=== PATIENT | male | born 1970 | race Caucasian/White ===

== ENCOUNTER 2018-08-12 13:44 | Emergency (ER) | payer MEDICARE ==
[2018-08-12 14:20] LABS: #Basophils 0.1 thou/uL (0.0-0.2); #Eosinphils 0.1 thou/uL (0.0-0.7); #Lymphocytes 1.8 thou/uL (1.20-3.40); #Monocytes 0.5 thou/uL (0.11-0.59); #Neutrophils 5.8 thou/uL (1.40-6.50); %Basophils 0.8 % (0.0-1.0); %Eosinophils 1.5 % (0.0-10.0); %Lymphocytes 21.9 % (21.0-51.0); %Monocytes 5.4 % (0.0-10.0); %Neutrophils 70.4 % (42.0-75.0); Hemoglobin 13.8 g/dL (14.0-18.0); Mean Corpuscular HGB CONC 32.9 g/dL (32.0-36.0); Mean Corpuscular Hemoglobin 32.4 pg (27.0-31.0); Mean Corpuscular Volume 98.6 fL (78.0-98.0); Mean Platelet Volume 9.9 fL (7.4-10.4); Platelet Count 208 thou/uL (130-400); RBC Distribution Width 11.6 % (11.5-14.5); Red Blood Cell (RBC) Count 4.25 mill/uL (4.70-6.10); White Blood Cell (WBC) Count 8.3 thou/uL (4.8-10.8)
[2018-08-12] MEDS ORDERED: Thiamine HCl 200 MG/2 ML VIAL ONE (14:27)
[2018-08-12 14:34] LABS: ALT (SGPT) 46 U/L (8-55); AST (SGOT) 48 U/L (5-34); Albumin 3.9 g/dL (3.5-5.0); Alkaline Phosphatase 90 U/L (40-150); Anion Gap 15 mmol/L (10-20); BUN (Urea Nitrogen) 12 mg/dL (8.9-20.6); Bilirubin, Total 0.5 mg/dL (0.2-1.2); Calc. Creatinine Clearance 0 mL/min (70-130); Calcium 9.6 mg/dL (7.8-10.44); Carbon Dioxide 24 mmol/L (22-29); Chloride 99 mmol/L (98-107); Estimated GFR-MDRD 54; Globulin 3.7 g/dL (2.4-3.5); Glucose 282 mg/dL (70-105); Lipase 52 U/L (8-78); Protein, Total 7.6 g/dL (6.0-8.3); Sodium 134 mmol/L (136-145)
[2018-08-12] MEDS ORDERED: Lorazepam 2 MG/ML VIAL ONE (14:35)
[2018-08-12 14:52] LABS: CKMB 1.2 ng/mL (0-6.6)
[2018-08-12] MEDS ORDERED: Furosemide 40 MG/4 ML VIAL ONE (15:29)
--- NOTE | 2018-08-12 18:21 | RAD ---
PORTABLE CHEST: 08/12/18 An AP portable film at 1412 is presented with no prior films available for comparison. The heart is mildly enlarged but there is no congestive change or pleural effusion. The lungs are luis ar. The mediastinum was unremarkable. IMPRESSION: Mild cardiomegaly. POS: HOME
== END 2018-08-12 16:19 | disposition short-term general hospital (02) ==
LOC: BURERS 13:44
DX: I50.9 Heart failure, unspecified (principal); F10.10 Alcohol abuse, uncomplicated; B19.20 Unspecified viral hepatitis C without hepatic coma; I95.9 Hypotension, unspecified; R18.8 Other ascites; E11.9 Type 2 diabetes mellitus without complications; F31.9 Bipolar disorder, unspecified; F20.9 Schizophrenia, unspecified; F17.210 Nicotine dependence, cigarettes, uncomplicated; Z79.4 Long term (current) use of insulin; Z79.899 Other long term (current) drug therapy
CPT/HCPCS: 36415; 71045; 80053; 82553; 83690; 83880; 84484; 85025; 93005; 96361; 96374; 96375; J1940; J2060; J3411

== ENCOUNTER 2019-05-20 15:54 | Emergency (ER) | payer MEDICARE ==
[2019-05-20 16:59] LABS: #Basophils 0.1 thou/uL (0.0-0.2); #Eosinphils 0.1 thou/uL (0.0-0.7); #Lymphocytes 1.9 thou/uL (1.20-3.40); #Monocytes 0.6 thou/uL (0.11-0.59); #Neutrophils 5.5 thou/uL (1.40-6.50); %Basophils 0.9 % (0.0-1.0); %Eosinophils 1.6 % (0.0-10.0); %Monocytes 7.3 % (0.0-10.0); %Neutrophils 67.1 % (42.0-75.0); Hemoglobin 12.7 g/dL (14.0-18.0); Mean Corpuscular HGB CONC 33.8 g/dL (32.0-36.0); Mean Corpuscular Hemoglobin 32.3 pg (27.0-31.0); Mean Corpuscular Volume 95.6 fL (78.0-98.0); Mean Platelet Volume 9.7 fL (7.4-10.4); Platelet Count 254 thou/uL (130-400); RBC Distribution Width 11.3 % (11.5-14.5); Red Blood Cell (RBC) Count 3.93 mill/uL (4.70-6.10); White Blood Cell (WBC) Count 8.2 thou/uL (4.8-10.8)
[2019-05-20 17:12] LABS: ALT (SGPT) 19 U/L (8-55); AST (SGOT) 19 U/L (5-34); Alkaline Phosphatase 90 U/L (40-110); Anion Gap 20 mmol/L (10-20); BUN (Urea Nitrogen) 16 mg/dL (8.4-25.7); Bilirubin, Total 0.4 mg/dL (0.2-1.2); Calc. Creatinine Clearance 0 mL/min (70-130); Carbon Dioxide 26 mmol/L (22-29); Chloride 90 mmol/L (98-107); Estimated GFR-MDRD 30; Globulin 3.7 g/dL (2.4-3.5); Glucose 262 mg/dL (70-105); Lipase 21 U/L (8-78); Protein, Total 7.7 g/dL (6.0-8.3); Sodium 132 mmol/L (136-145)
[2019-05-20 17:31] LABS: CKMB 1.9 ng/mL (0-6.6)
[2019-05-20] MEDS ORDERED: Ibuprofen 200 MG TAB ONE (19:33)
--- NOTE | 2019-05-20 22:36 | RAD ---
PORTABLE CHEST: 05/20/19 An AP portable film at 1628 is compared with the prior study of 08/12/18. The heart is mildly enlarged but approximately the same as before. No vascular congestion, edema, or pleural effusion was seen. There is no focal pulmonary infiltrate. IMPRESSION: Mild cardiomegaly with little change since the prior exam. POS: HOME
== END 2019-05-20 19:40 | disposition short-term general hospital (02) ==
LOC: BURERS 15:54
DX: N17.9 Acute kidney failure, unspecified (principal); E86.0 Dehydration; I95.9 Hypotension, unspecified; I11.0 Hypertensive heart disease with heart failure; I50.9 Heart failure, unspecified; E11.9 Type 2 diabetes mellitus without complications; F31.9 Bipolar disorder, unspecified; F20.9 Schizophrenia, unspecified; F17.210 Nicotine dependence, cigarettes, uncomplicated; F17.220 Nicotine dependence, chewing tobacco, uncomplicated; Z79.899 Other long term (current) drug therapy; Z79.4 Long term (current) use of insulin; Z79.51 Long term (current) use of inhaled steroids
CPT/HCPCS: 71045; 80053; 82553; 83605; 83690; 83880; 84484; 85025; 93005; 96360

== ENCOUNTER 2019-08-02 09:55 | Emergency (ER) | payer MEDICARE, OTHER ==
[~2019-08-02 09:55] MED LIST: Iopamidol 370 76% 100 ML VIAL ONE
[2019-08-02 10:57] LABS: #Basophils 0.1 thou/uL (0.0-0.2); #Eosinphils 0.1 thou/uL (0.0-0.7); #Lymphocytes 1.7 thou/uL (1.20-3.40); #Monocytes 0.5 thou/uL (0.11-0.59); #Neutrophils 6.4 thou/uL (1.40-6.50); %Basophils 0.8 % (0.0-1.0); %Eosinophils 1.1 % (0.0-10.0); %Lymphocytes 19.7 % (21.0-51.0); %Neutrophils 72.4 % (42.0-75.0); Hemoglobin 14.2 g/dL (14.0-18.0); Mean Corpuscular HGB CONC 32.4 g/dL (32.0-36.0); Mean Corpuscular Volume 98.9 fL (78.0-98.0); Mean Platelet Volume 7.7 fL (7.4-10.4); Platelet Count 265 thou/uL (130-400); RBC Distribution Width 12.4 % (11.5-14.5); Red Blood Cell (RBC) Count 4.43 mill/uL (4.70-6.10); White Blood Cell (WBC) Count 8.8 thou/uL (4.8-10.8)
[2019-08-02] MEDS ORDERED: Lorazepam 2 MG/ML VIAL ONE (10:58)
[2019-08-02] MEDS ORDERED: Fentanyl 100 MCG/2 ML VIAL ONE (10:58)
[2019-08-02 11:09] LABS: ALT (SGPT) 28 U/L (8-55); AST (SGOT) 39 U/L (5-34); Alkaline Phosphatase 112 U/L (40-110); Anion Gap 19 mmol/L (10-20); BUN (Urea Nitrogen) 6 mg/dL (8.4-25.7); Bilirubin, Total 0.6 mg/dL (0.2-1.2); Calc. Creatinine Clearance 0 mL/min (70-130); Calcium 8.8 mg/dL (7.8-10.44); Carbon Dioxide 22 mmol/L (22-29); Chloride 94 mmol/L (98-107); Estimated GFR-MDRD 46; Glucose 435 mg/dL (70-105); Lipase 26 U/L (8-78); Magnesium 2.1 mg/dL (1.6-2.6); Potassium 4.1 mmol/L (3.5-5.1); Sodium 131 mmol/L (136-145)
[2019-08-02 11:23] LABS: Albumin 3.9 g/dL (3.5-5.0); Globulin 4.1 g/dL (2.4-3.5)
[2019-08-02] MEDS ORDERED: Thiamine HCl 200 MG/2 ML VIAL ONE (11:25)
[2019-08-02] MEDS ORDERED: Multivit, Adult Inj 10 ML VIAL ONE (11:26)
[2019-08-02] MEDS ORDERED: Piperacillin/Tazobactam 4.5 GM VIAL ONE (12:12)
[2019-08-02] MEDS ORDERED: Sodium Chloride 0.9% 100 ML ONE (12:13)
[2019-08-02 13:10] LABS: Lactic Acid 1.5 mmol/L (0.5-2.2)
[2019-08-02 13:20] LABS: Troponin I 0.134 ng/mL (< 0.028)
--- NOTE | 2019-08-02 15:32 | RAD ---
PORTABLE CHEST: Date: 08-02-2019 Comparison: 05-20-2019 FINDINGS: This portable film at 1110 shows mild cardiomegaly but no current congestive change. The lungs are cl ear and the vessels are normal in appearance. There are no effusions. No focal infiltrates are seen. An AICD has been added since the prior study. IMPRESSION: Mild cardiomegaly but no findings of CHF. POS: HOME
--- NOTE | 2019-08-02 15:44 | CT ---
CT ABDOMEN AND PELVIS WITH CONTRAST: DATE: 08/02/2019. FINDINGS: Spiral CT of the abdomen and pelvis was performed for evaluation of nausea and vomiting and diarrhea. The lung bases are clear. The liver, spleen, pancreas, gallbladder, adrenal glands, kidneys, and abd ominal aorta showed no acute findings. There is a tiny gallstone visible in the gallbladder, but the re is no thickening of the wall or pericholecystic inflammatory change. The gallbladder is not enlar ged. There is mild diffuse thickening of the colonic wall throughout its entire extent. The possibility o f colitis, infectious or inflammatory, is raised. There is no distention or thickening of the stomach. The small bowel is not distended. No free air or free fluid was seen. CT of the pelvis shows no pelvic masses, fluid collections, or inflammatory changes. IMPRESSION: 1. Mild diffuse colonic inflammatory change. colitis of infectious or inflammatory causes should be considered. 2. Tiny gallstones. Preliminary report called to Dr. Haq at 12:13 on 08/02/2019. CODE CR POS: HOME
[2019-08-03 11:08] LABS: SARS-CoV-2 MS2 Positive; SARS-CoV-2 N Gene Negative; SARS-CoV-2 S Gene Negative; SARS-CoV-2 orf1ab Negative
== END 2019-08-02 13:48 | disposition short-term general hospital (02) ==
LOC: BURERS 09:55
DX: A41.9 Sepsis, unspecified organism (principal); F10.239 Alcohol dependence with withdrawal, unspecified; K52.9 Noninfective gastroenteritis and colitis, unspecified; Z20.828 Contact with and (suspected) exposure to other viral communicable diseases; I11.0 Hypertensive heart disease with heart failure; I50.9 Heart failure, unspecified; E11.9 Type 2 diabetes mellitus without complications; F17.220 Nicotine dependence, chewing tobacco, uncomplicated; Z79.899 Other long term (current) drug therapy
CPT/HCPCS: 36415; 71045; 74177; 80053; 82553; 83605; 83690; 83735; 84443; 84484; 85025; 87040; 87086; 87635; 87804; 93005; 94760; 96361; 96365; 96366; 96368; 96372; 96375; J2060; J2543; J3010; J3370; J3411; J3490; Q9967; U0003

== ENCOUNTER 2019-10-10 10:08 | Emergency (ER) | payer MEDICARE, OTHER ==
[2019-10-10] MEDS ORDERED: Famotidine In NaCl 20 mg/50 ml Premix Bag ONE (10:51)
[2019-10-10] MEDS ORDERED: Ondansetron PF 4 MG/2 ML Vial ONE ×3 (10:51→15:55)
[2019-10-10 11:05] LABS: #Lymphocytes 1.2 thou/uL (1.20-3.40); #Monocytes 0.3 thou/uL (0.11-0.59); #Neutrophils 5.5 thou/uL (1.40-6.50); %Basophils 0.6 % (0.0-1.0); %Eosinophils 0.4 % (0.0-10.0); %Monocytes 4.8 % (0.0-10.0); %Neutrophils 77.3 % (42.0-75.0); Hemoglobin 13.3 g/dL (14.0-18.0); Mean Corpuscular HGB CONC 31.5 g/dL (32.0-36.0); Mean Corpuscular Hemoglobin 31.1 pg (27.0-31.0); Mean Corpuscular Volume 98.5 fL (78.0-98.0); Mean Platelet Volume 7.8 fL (7.4-10.4); Platelet Count 259 thou/uL (130-400); RBC Distribution Width 11.8 % (11.5-14.5); Red Blood Cell (RBC) Count 4.28 mill/uL (4.70-6.10); White Blood Cell (WBC) Count 7.1 thou/uL (4.8-10.8)
[2019-10-10 11:07] LABS: Bilirubin Negative (Negative); Blood, Urine Negative (Negative); Clarity Clear (Clear); Glucose, Urine (Dipstick) 500 mg/dL (Negative); Ketone, Urine Trace mg/dL (Negative); Leukocyte Negative (Negative); Nitrite Negative (Negative); Protein, Urine (Dipstick) Negative (Neg-Trace); Specific Gravity, Urine 1.015 (1.005-1.030); Urobilinogen 0.2 mg/dL (Less than 2); pH, Urine 7.5 (5.0-9.0)
[2019-10-10 11:17] LABS: ALT (SGPT) 28 U/L (8-55); AST (SGOT) 59 U/L (5-34); Albumin 4.1 g/dL (3.5-5.0); Alcohol Less than 10 mg/dL (Less than 10); Alkaline Phosphatase 104 U/L (40-110); Anion Gap 19 mmol/L (10-20); BUN (Urea Nitrogen) 9 mg/dL (8.4-25.7); Bilirubin, Total 0.9 mg/dL (0.2-1.2); Calc. Creatinine Clearance 0 mL/min (70-130); Calcium 9.1 mg/dL (7.8-10.44); Carbon Dioxide 23 mmol/L (22-29); Chloride 93 mmol/L (98-107); Estimated GFR-MDRD 60; Globulin 3.8 g/dL (2.4-3.5); Glucose 549 mg/dL (70-105); Lipase 17 U/L (8-78); Potassium 4.7 mmol/L (3.5-5.1); Protein, Total 7.9 g/dL (6.0-8.3); Sodium 130 mmol/L (136-145)
[2019-10-10] MEDS ORDERED: Thiamine HCl 200 MG/2 ML VIAL ONE (11:18)
[2019-10-10] MEDS ORDERED: Lorazepam 2 MG/ML VIAL ONE ×2 (11:18→15:57)
[2019-10-10 11:34] LABS: CKMB 3.3 ng/mL (0-6.6)
[2019-10-10] MEDS ORDERED: Insulin Regular 300 UNITS/3 ML VIAL ONE (12:02)
[2019-10-10 13:02] LABS: Base Excess-Venous -1.3 mmol/L (-2.0 to 3.0); Bicarbonate (HCO3v) 24.9 mmol/L (22.0-28.0); CO2 Tension (PvCO2) 46.6 mmHg (40.0-50.0); Calcium, Ionized 1.08 mmol/L (See Comments:); Chloride 99 mmol/L (98-107); Hemoglobin - Calc 13.4 g/dL (14.0-18.0); Potassium 3.9 mmol/L (3.5-5.1); Sodium 135 mmol/L (138-145); T. Carbon Dioxide 26.3 mmol/L (22.0-28.0); vO2 Saturation-calc 97.9 % (60.0-85.0)
[2019-10-10 13:40] LABS: Anion Gap 15 mmol/L (10-20); BUN (Urea Nitrogen) 8 mg/dL (8.4-25.7); Calc. Creatinine Clearance 0 mL/min (70-130); Calcium 8.6 mg/dL (7.8-10.44); Carbon Dioxide 26 mmol/L (22-29); Chloride 99 mmol/L (98-107); Estimated GFR-MDRD 78; Glucose 333 mg/dL (70-105); Potassium 4.7 mmol/L (3.5-5.1); Sodium 135 mmol/L (136-145)
--- NOTE | 2019-10-10 14:29 | RAD ---
PORTABLE CHEST: Date: 10-10-2019 An AP portable film at 1411 is compared with a 08-02-2019 study. FINDINGS: Borderline cardiomegaly is about the same. There is no congestive change, pleural effusion or pulmona ry edema. The lungs are clear. An AICD is in place as usual. Scoliosis is noted as before. IMPRESSION: No acute thoracic findings. POS: HOME
== END 2019-10-10 16:35 | disposition short-term general hospital (02) ==
LOC: BURERS 10:08
DX: K51.90 Ulcerative colitis, unspecified, without complications (principal); F10.20 Alcohol dependence, uncomplicated; E11.10 Type 2 diabetes mellitus with ketoacidosis without coma; E87.1 Hypo-osmolality and hyponatremia; I11.0 Hypertensive heart disease with heart failure; I50.9 Heart failure, unspecified; F31.9 Bipolar disorder, unspecified; F20.9 Schizophrenia, unspecified; F17.220 Nicotine dependence, chewing tobacco, uncomplicated; Z79.899 Other long term (current) drug therapy; Z79.4 Long term (current) use of insulin; Y90.0 Blood alcohol level of less than 20 mg/100 ml
CPT/HCPCS: 36415; 36416; 71045; 80053; 80307; 81003; 82330; 82553; 82803; 83690; 83735; 83880; 84484; 85025; 93005; 96365; 96375; 96376; J1815; J2060; J2405; J3411

== ENCOUNTER 2019-12-09 19:35 | Emergency (ER) | payer MEDICARE ==
[~2019-12-09 19:35] MED LIST changes: +Dextrose 5 %-0.45 % NaCl 1000 ml Bag ONE; -Iopamidol 370 76% 100 ML VIAL ONE
[2019-12-09 20:00] LABS: #Basophils 0.1 thou/uL (0.0-0.2); #Lymphocytes 0.7 thou/uL (1.20-3.40); #Monocytes 0.4 thou/uL (0.11-0.59); #Neutrophils 6.3 thou/uL (1.40-6.50); %Basophils 0.8 % (0.0-1.0); %Lymphocytes 9.5 % (21.0-51.0); %Monocytes 4.8 % (0.0-10.0); %Neutrophils 84.9 % (42.0-75.0); Hemoglobin 11.6 g/dL (14.0-18.0); Mean Corpuscular HGB CONC 32.5 g/dL (32.0-36.0); Mean Corpuscular Hemoglobin 31.5 pg (27.0-31.0); Mean Corpuscular Volume 97.1 fL (78.0-98.0); Mean Platelet Volume 8.1 fL (7.4-10.4); Platelet Count 310 thou/uL (130-400); RBC Distribution Width 13.3 % (11.5-14.5); Red Blood Cell (RBC) Count 3.68 mill/uL (4.70-6.10); White Blood Cell (WBC) Count 7.4 thou/uL (4.8-10.8)
[2019-12-09] MEDS ORDERED: Lorazepam 2 MG/ML VIAL ONE ×2 (20:04→20:10)
[2019-12-09] MEDS ORDERED: Thiamine HCl 200 MG/2 ML VIAL ONE (20:04)
[2019-12-09] MEDS ORDERED: Aspirin Chewable 81 MG TAB ONE (20:04)
[2019-12-09] MEDS ORDERED: Ondansetron PF 4 MG/2 ML Vial ONE (20:04)
[2019-12-09 20:13] LABS: ALT (SGPT) 33 U/L (8-55); AST (SGOT) 56 U/L (5-34); Albumin 3.6 g/dL (3.5-5.0); Alkaline Phosphatase 86 U/L (40-110); Anion Gap 26 mmol/L (10-20); BUN (Urea Nitrogen) Less than 4 mg/dL (8.4-25.7); Bilirubin, Total 0.5 mg/dL (0.2-1.2); Calc. Creatinine Clearance 0 mL/min (70-130); Calcium 8.3 mg/dL (7.8-10.44); Carbon Dioxide 22 mmol/L (22-29); Chloride 90 mmol/L (98-107); Estimated GFR-MDRD 71; Globulin 3.9 g/dL (2.4-3.5); Lipase 31 U/L (8-78); Magnesium 1.8 mg/dL (1.6-2.6); Potassium 4.6 mmol/L (3.5-5.1); Protein, Total 7.5 g/dL (6.0-8.3); Sodium 133 mmol/L (136-145)
[2019-12-09 20:18] LABS: Glucose 573 mg/dL (70-105)
[2019-12-09] MEDS ORDERED: INSULIN REGULAR IN 0.9 % NACL 100 UNIT/100 ML BAG ONE (20:35)
[2019-12-09] MEDS ORDERED: Insulin Regular 300 UNITS/3 ML VIAL ONE (20:35)
[2019-12-09] MEDS ORDERED: Furosemide 100 MG/10 ML VIAL ONE (20:43)
[2019-12-09 20:50] LABS: Base Excess-Venous 3.5 mmol/L (-2.0 to 3.0); Bicarbonate (HCO3v) 26.3 mmol/L (22.0-28.0); CO2 Tension (PvCO2) 33.1 mmHg (40.0-50.0); Chloride 93 mmol/L (98-107); Hemoglobin - Calc 12.2 g/dL (14.0-18.0); Potassium 4.2 mmol/L (3.5-5.1); Sodium 133 mmol/L (138-145); T. Carbon Dioxide 27.3 mmol/L (22.0-28.0); vO2 Saturation-calc 97.6 % (60.0-85.0)
[2019-12-09 21:15] LABS: Bilirubin Negative (Negative); Blood, Urine Trace (Negative); Clarity Clear (Clear); Glucose, Urine (Dipstick) 500 mg/dL (Negative); Ketone, Urine 15 mg/dL (Negative); Leukocyte Negative (Negative); Nitrite Negative (Negative); Protein, Urine (Dipstick) Negative (Neg-Trace); Specific Gravity, Urine 1.015 (1.005-1.030); Urobilinogen 0.2 mg/dL (Less than 2); pH, Urine 8.5 (5.0-9.0)
[2019-12-09 21:18] LABS: CKMB 1.7 ng/mL (0-6.6)
[2019-12-09 21:25] LABS: Amphetamine Not Detected (NotDetected); Barbiturates Screen Not Detected (NotDetected); Benzodiazepine Screen Not Detected (NotDetected); Cocaine Metabolite Screen Not Detected (NotDetected); Medtox Control Line Valid? VALID (VALID); Methadone Not Detected (NotDetected); Methamphetamine Not Detected (NotDetected); Opiate Screen Not Detected (NotDetected); Oxycodone Screen Not Detected (NotDetected); Phencyclidine (PCP) Not Detected (NotDetected); RBC/HPF 0-3 HPF (0-3); THC/Cannabinoid Screen Not Detected (NotDetected); Tricyclic Screen Not Detected (NotDetected)
[2019-12-09 21:26] LABS: Bacteria/HPF Rare-Few HPF (None Seen); Squamous Epithelial 0-3 HPF (0-3); WBC/HPF 0-3 HPF (0-3)
[2019-12-09] MEDS ORDERED: Nitroglycerin 0.4 MG TAB 1 EACH ONE (21:27)
[2019-12-09] MEDS ORDERED: Famotidine 20 MG TAB ONE (22:06)
--- NOTE | 2019-12-10 07:25 | RAD ---
PORTABLE CHEST: Date: 12/09/2019 An AP portable film at 1959 hours is compared with the 11/21/2019 study. An AICD is noted as usual. Mild cardiomegaly is unchanged and there is no vascular congestion, edema, or pleural effusion. The lungs are clear. Scoliosis is present as usual. IMPRESSION: Mild cardiomegaly, but no acute findings. POS: HOME
== END 2019-12-09 22:25 | disposition short-term general hospital (02) ==
LOC: BURERS 19:35
DX: E11.10 Type 2 diabetes mellitus with ketoacidosis without coma (principal); I11.0 Hypertensive heart disease with heart failure; I50.9 Heart failure, unspecified; F10.239 Alcohol dependence with withdrawal, unspecified; Y90.2 Blood alcohol level of 40-59 mg/100 ml; E87.2 Acidosis; E87.3 Alkalosis; B19.20 Unspecified viral hepatitis C without hepatic coma; F31.9 Bipolar disorder, unspecified; F20.9 Schizophrenia, unspecified; F17.220 Nicotine dependence, chewing tobacco, uncomplicated; Z79.4 Long term (current) use of insulin; Z79.899 Other long term (current) drug therapy
CPT/HCPCS: 36415; 36416; 71045; 80053; 80306; 80307; 81003; 81015; 82330; 82553; 82803; 83690; 83735; 83880; 84484; 85025; 93005; 94760; 96365; 96366; 96375; 96376; J1815; J1940; J2060; J2405; J3411; J7042

== ENCOUNTER 2020-04-01 17:48 | Emergency (ER) | payer MEDICARE ==
[2020-04-01] MEDS ORDERED: Lidocaine 2% PF 5 ML VIAL ONE (18:44)
[2020-04-01 19:05] LABS: Anion Gap 16 mmol/L (10-20); BUN (Urea Nitrogen) 10 mg/dL (8.4-25.7); Calc. Creatinine Clearance 0 mL/min (70-130); Calcium 8.7 mg/dL (7.8-10.44); Carbon Dioxide 26 mmol/L (22-29); Chloride 92 mmol/L (98-107); Glucose 180 mg/dL (70-105); Potassium 4.1 mmol/L (3.5-5.1); Sodium 130 mmol/L (136-145)
[2020-04-01] MEDS ORDERED: Acetaminophen 500 MG TAB ONE (19:55)
--- NOTE | 2020-04-01 19:57 | RAD ---
RIGHT KNEE FOUR VIEWS: 04/01/20 No fracture or joint space abnormality was seen. There might be a very small joint effusion. IMPRESSION: No acute bony finding. POS: HOME
[2020-04-02 15:34] LABS: RBC Count-Automated (BF) 10304 /cu.mm; WBC/Nucleated-Auto (BF) 34245 uL
[2020-04-02 15:44] LABS: BF Color Yellow; Body Fluid Source Synovial Fluid; Clarity Cloudy/Turbid (Clear); Tube # EDTA
[2020-04-02 15:46] LABS: Cell Count Non Hematic 43 %; Lymphocytes 10 %
[2020-04-02 15:47] LABS: BF Segmented Neutrophils 46 %; Eosinophils 1 %
== END 2020-04-01 19:50 | disposition home or self-care (01) ==
LOC: BURERS 17:48
DX: M25.461 Effusion, right knee (principal); Z79.899 Other long term (current) drug therapy; I11.0 Hypertensive heart disease with heart failure; I50.9 Heart failure, unspecified; E11.9 Type 2 diabetes mellitus without complications
CPT/HCPCS: 36415; 80048; 85060; 87070; 87205; 89051; 89060; J2001

== ENCOUNTER 2020-06-05 13:31 | Emergency (ER) | payer MEDICARE ==
[~2020-06-05 13:31] MED LIST changes: -Dextrose 5 %-0.45 % NaCl 1000 ml Bag ONE; +Iopamidol 370 76% 100 ML VIAL ONE
[2020-06-05 14:50] LABS: #Basophils 0.1 thou/uL (0.0-0.2); #Eosinphils 0.1 thou/uL (0.0-0.7); #Lymphocytes 1.3 thou/uL (1.20-3.40); #Monocytes 0.6 thou/uL (0.11-0.59); #Neutrophils 8.3 thou/uL (1.40-6.50); %Eosinophils 0.7 % (0.0-10.0); %Lymphocytes 12.4 % (21.0-51.0); %Monocytes 6.1 % (0.0-10.0); %Neutrophils 79.8 % (42.0-75.0); Hemoglobin 11.6 g/dL (14.0-18.0); Mean Corpuscular HGB CONC 31.5 g/dL (32.0-36.0); Mean Corpuscular Hemoglobin 30.2 pg (27.0-31.0); Mean Corpuscular Volume 95.8 fL (78.0-98.0); Mean Platelet Volume 6.4 fL (7.4-10.4); Platelet Count 391 thou/uL (130-400); RBC Distribution Width 13.8 % (11.5-14.5); Red Blood Cell (RBC) Count 3.83 mill/uL (4.70-6.10); White Blood Cell (WBC) Count 10.4 thou/uL (4.8-10.8)
[2020-06-05 15:17] LABS: CRP (Inflammatory) 6.2 mg/dL (= or < 0.5)
[2020-06-05 15:19] LABS: ALT (SGPT) Less than 7 U/L (8-55); AST (SGOT) 8 U/L (5-34); Albumin 2.4 g/dL (3.5-5.0); Alkaline Phosphatase 123 U/L (40-110); Anion Gap 14 mmol/L (10-20); BUN (Urea Nitrogen) Less than 4 mg/dL (8.4-25.7); Bilirubin, Total 0.3 mg/dL (0.2-1.2); Calc. Creatinine Clearance 0 mL/min (70-130); Calcium 7.4 mg/dL (7.8-10.44); Carbon Dioxide 22 mmol/L (22-29); Chloride 100 mmol/L (98-107); Globulin 3.7 g/dL (2.4-3.5); Glucose 456 mg/dL (70-105); Potassium 4.1 mmol/L (3.5-5.1); Protein, Total 6.1 g/dL (6.0-8.3); Sodium 132 mmol/L (136-145)
[2020-06-05] MEDS ORDERED: Morphine 4 MG/ML VIAL ONE (15:29)
[2020-06-05] MEDS ORDERED: Ondansetron PF 4 MG/2 ML Vial ONE (15:29)
[2020-06-05] MEDS ORDERED: Piperacillin/Tazobactam 4.5 GM VIAL ONE ×3 (16:15→16:20)
[2020-06-05] MEDS ORDERED: Calcium Gluc 4.6 MEQ/10 ML (100 MG/ML) ONE (16:15)
[2020-06-05] MEDS ORDERED: Sodium Chloride 0.9% 100 ML ONE ×2 (16:21→16:22)
[2020-06-05] MEDS ORDERED: Lorazepam 2 MG/ML VIAL ONE ×2 (17:50→19:15)
[2020-06-05 17:53] LABS: Lactic Acid 1.5 mmol/L (0.5-2.2)
[2020-06-05] MEDS ORDERED: Insulin Regular 300 UNITS/3 ML VIAL ONE (19:35)
== END 2020-06-05 20:02 | disposition short-term general hospital (02) ==
LOC: BURERS 13:31
DX: K51.00 Ulcerative (chronic) pancolitis without complications (principal); E86.0 Dehydration; F10.20 Alcohol dependence, uncomplicated; E11.65 Type 2 diabetes mellitus with hyperglycemia; I11.0 Hypertensive heart disease with heart failure; I50.9 Heart failure, unspecified; Z79.899 Other long term (current) drug therapy
CPT/HCPCS: 36415; 36416; 74177; 80053; 83605; 83690; 83880; 84484; 85025; 86140; 87040; 87045; 87046; 87077; 87427; 87449; 93005; 96361; 96374; 96375; 96376; J1815; J2001; J2060; J2270; J2405; J2543; J3490; Q9967

== ENCOUNTER 2020-06-16 15:24 | Inpatient (IN) | payer MEDICARE | END 2020-06-16 20:30 | disposition left against medical advice (07) | DRG 386 | LOC: BURMED 19:04 | PROVIDERS: ADMIT Family Medicine; ATTEND Family Medicine | DX: K51.90 Ulcerative colitis, unspecified, without complications (principal); I50.22 Chronic systolic (congestive) heart failure; E11.9 Type 2 diabetes mellitus without complications ==

== ENCOUNTER 2021-01-25 09:25 | Emergency (ER) | payer MEDICARE ==
[2021-01-25] MEDS ORDERED: Cefepime 2 GM VIAL ONE (10:00)
[2021-01-25] MEDS ORDERED: Sodium Chloride 0.9% 100 ML ONE (10:00)
[2021-01-25 10:12] LABS: Hemoglobin 12.9 g/dL (14.0-18.0); Mean Corpuscular HGB CONC 33.4 g/dL (32.0-36.0); Mean Corpuscular Hemoglobin 30.7 pg (27.0-31.0); Mean Corpuscular Volume 91.9 fL (78.0-98.0); Mean Platelet Volume 7.5 fL (7.4-10.4); Platelet Count 297 thou/uL (130-400); RBC Distribution Width 13.6 % (11.5-14.5); Red Blood Cell (RBC) Count 4.21 mill/uL (4.70-6.10); White Blood Cell (WBC) Count 21.2 thou/uL (4.8-10.8)
[2021-01-25 10:20] LABS: INR-International Normal Ratio 1.2; Prothrombin Time 15.5 sec (12.0-14.7)
[2021-01-25 10:21] LABS: PTT 31.1 sec (22.9-36.1)
[2021-01-25 10:28] LABS: ALT (SGPT) 21 U/L (8-55); AST (SGOT) 32 U/L (5-34); Acetaminophen Less than 6.0 mcg/mL (10.0-30.0); Albumin 3.8 g/dL (3.5-5.0); Alcohol Less than 10 mg/dL (Less than 10); Alkaline Phosphatase 97 U/L (40-110); Anion Gap 30 mmol/L (10-20); BUN (Urea Nitrogen) 26 mg/dL (8.4-25.7); Bilirubin, Total 0.6 mg/dL (0.2-1.2); CK (CPK) 70 U/L (30-200); Calc. Creatinine Clearance 0 mL/min (70-130); Calcium 10.5 mg/dL (7.8-10.44); Carbon Dioxide 20 mmol/L (22-29); Chloride 88 mmol/L (98-107); Globulin 4.7 g/dL (2.4-3.5); Glucose 297 mg/dL (70-105); Magnesium 3.2 mg/dL (1.6-2.6); Potassium 3.8 mmol/L (3.5-5.1); Protein, Total 8.5 g/dL (6.0-8.3); Salicylate Less than 8.0 mg/dL (15.0-30.0); Sodium 134 mmol/L (136-145)
[2021-01-25 10:33] LABS: Bilirubin Negative (Negative); Blood, Urine Trace (Negative); Clarity Clear (Clear); Glucose, Urine (Dipstick) >=1000 mg/dL (Negative); Ketone, Urine Trace mg/dL (Negative); Leukocyte Negative (Negative); Nitrite Negative (Negative); Protein, Urine (Dipstick) 100 mg/dL (Neg-Trace); Urobilinogen 0.2 mg/dL (Less than 2)
[2021-01-25 10:42] LABS: Amphetamine Not Detected (NotDetected); Barbiturates Screen Not Detected (NotDetected); Benzodiazepine Screen Not Detected (NotDetected); Cocaine Metabolite Screen Not Detected (NotDetected); Medtox Control Line Valid? VALID (VALID); Methadone Detected (NotDetected); Methamphetamine Not Detected (NotDetected); Opiate Screen Detected (NotDetected); Oxycodone Screen Not Detected (NotDetected); Phencyclidine (PCP) Not Detected (NotDetected); THC/Cannabinoid Screen Not Detected (NotDetected); Tricyclic Screen Not Detected (NotDetected)
[2021-01-25 10:43] LABS: Bacteria/HPF None Seen HPF (None Seen); RBC/HPF 0-3 HPF (0-3); Renal Epithelial 0-3 HPF (None Seen)
[2021-01-25 10:52] LABS: Band 24 % (5-11); Lymphocytes 8 % (21-51); MDiff Complete? YES; Monocytes 1 % (0-10); Neutrophil 67 % (42-75)
[2021-01-25] MEDS ORDERED: Fentanyl 100 MCG/2 ML VIAL ONE (11:03)
[2021-01-25 11:15] LABS: SARS-CoV-2 NAA Rapid Test Not Detected (NotDetected)
[2021-01-25] MEDS ORDERED: Iopamidol 370 76% 100 ML VIAL ONE (16:39)
== END 2021-01-25 12:05 | disposition short-term general hospital (02) ==
LOC: BURERS 09:25
DX: A41.9 Sepsis, unspecified organism (principal); L89.899 Pressure ulcer of other site, unspecified stage; K85.90 Acute pancreatitis without necrosis or infection, unspecified; E11.65 Type 2 diabetes mellitus with hyperglycemia; I11.0 Hypertensive heart disease with heart failure; I50.9 Heart failure, unspecified; E11.9 Type 2 diabetes mellitus without complications; Z79.899 Other long term (current) drug therapy; Z79.82 Long term (current) use of aspirin; Z20.822 Contact with and (suspected) exposure to COVID-19
CPT/HCPCS: 0240U; 70450; 71260; 72125; 74177; 80306; 80307; 82550; 82553; 83605; 83690; 83735; 84484; 85610; 85730; 87040; 87077; 87086; 87149 ×2; 87186; 36415; 80053; 81003; 81015; 84443; 85025; 96365; 96367; 96375; J0692; J3010; J3370; J3490; Q9967

== ENCOUNTER 2021-03-11 15:25 | Emergency (ER) | payer MEDICARE ==
[2021-03-11] MEDS ORDERED: Iopamidol 370 76% 100 ML VIAL FS ONE (15:26)
[2021-03-11 16:30] LABS: Hemoglobin 11.7 g/dL (14.0-18.0); Mean Corpuscular HGB CONC 32.9 g/dL (32.0-36.0); Mean Corpuscular Hemoglobin 30.3 pg (27.0-31.0); Mean Corpuscular Volume 92.1 fL (78.0-98.0); Mean Platelet Volume 8.4 fL (7.4-10.4); Platelet Count 346 thou/uL (130-400); Red Blood Cell (RBC) Count 3.88 mill/uL (4.70-6.10); White Blood Cell (WBC) Count 13.8 thou/uL (4.8-10.8)
[2021-03-11 16:42] LABS: ALT (SGPT) 15 U/L (8-55); AST (SGOT) 13 U/L (5-34); Albumin 3.7 g/dL (3.5-5.0); Alkaline Phosphatase 94 U/L (40-110); Anion Gap 18 mmol/L (10-20); BUN (Urea Nitrogen) 15 mg/dL (8.4-25.7); Bilirubin, Total Less than 0.2 mg/dL (0.2-1.2); Calc. Creatinine Clearance 0 mL/min (70-130); Calcium 9.6 mg/dL (7.8-10.44); Carbon Dioxide 25 mmol/L (22-29); Chloride 92 mmol/L (98-107); Globulin 4.7 g/dL (2.4-3.5); Potassium 3.8 mmol/L (3.5-5.1); Protein, Total 8.4 g/dL (6.0-8.3); Sodium 131 mmol/L (136-145)
[2021-03-11 16:43] LABS: Glucose 563 mg/dL (70-105)
[2021-03-11] MEDS ORDERED: Cefepime 2 GM VIAL ONE (17:53)
[2021-03-11] MEDS ORDERED: Sodium Chloride 0.9% 100 ML ONE (17:54)
[2021-03-11 18:00] LABS: Band 17 % (5-11); Eosinophils 1 % (0-10); Lymphocytes 11 % (21-51); MDiff Complete? YES; Monocytes 1 % (0-10); Neutrophil 70 % (42-75)
[2021-03-11 18:11] LABS: Base Excess-Venous 0.9 mmol/L (-2.0 to 3.0); Bicarbonate (HCO3v) 26.9 mmol/L (22.0-28.0); CO2 Tension (PvCO2) 47.5 mmHg (42.0-51.0); Calcium, Ionized 1.14 mmol/L (1.15-1.33); Chloride 91 mmol/L (98-107); Hemoglobin - Calc 12.7 g/dL (14.0-18.0); Potassium 3.9 mmol/L (3.5-5.1); Sodium 133 mmol/L (138-145); T. Carbon Dioxide 28.3 mmol/L (22.0-28.0); vO2 Saturation-calc 99.4 % (60.0-85.0)
[2021-03-11] MEDS ORDERED: Insulin Regular 300 UNITS/3 ML VIAL ONE (18:53)
[2021-03-11 18:59] LABS: Lactic Acid 2.1 mmol/L (0.5-2.2)
[2021-03-11] MEDS ORDERED: Lidocaine 1% PF 5 ML VIAL ONE (19:42)
[2021-03-11] MEDS ORDERED: Morphine 4 MG/ML VIAL ONE ×2 (19:55→21:25)
[2021-03-11 20:29] LABS: SARS-CoV-2 NAA Rapid Test Not Detected (NotDetected)
[2021-03-11] MEDS ORDERED: Ketorolac Tromethamine 30 MG/ML VIAL ONE (21:41)
[2021-03-12] MEDS ORDERED: Morphine 10 MG/ML VIAL ONE (07:25)
[2021-03-12] MEDS ORDERED: Carvedilol 3.125 MG TAB PO SCH (08:45)
[2021-03-12] MEDS ORDERED: Colchicine 0.6 MG TAB PO SCH (08:45)
[2021-03-12] MEDS ORDERED: Carbidopa/Levodopa 25-100 mg Tablet PO SCH (08:45)
[2021-03-12] MEDS ORDERED: Cefepime 2 GM VIAL ONE (10:30)
[2021-03-12] MEDS ORDERED: Boostrix 0.5 ML (Tdap) VIAL ONE (10:30)
[2021-03-12] MEDS ORDERED: Ketorolac Tromethamine 30 MG/ML VIAL ONE (10:30)
[2021-03-12 11:49] LABS: #Basophils 0.1 thou/uL (0.0-0.2); #Eosinphils 0.2 thou/uL (0.0-0.7); #Lymphocytes 1.3 thou/uL (1.20-3.40); #Monocytes 0.9 thou/uL (0.11-0.59); #Neutrophils 7.5 thou/uL (1.40-6.50); %Basophils 0.6 % (0.0-1.0); %Eosinophils 1.8 % (0.0-10.0); %Neutrophils 75.6 % (42.0-75.0); Hemoglobin 9.8 g/dL (14.0-18.0); Mean Corpuscular HGB CONC 31.8 g/dL (32.0-36.0); Mean Corpuscular Hemoglobin 29.7 pg (27.0-31.0); Mean Corpuscular Volume 93.5 fL (78.0-98.0); Mean Platelet Volume 7.9 fL (7.4-10.4); Platelet Count 309 thou/uL (130-400); RBC Distribution Width 14.1 % (11.5-14.5); Red Blood Cell (RBC) Count 3.29 mill/uL (4.70-6.10); White Blood Cell (WBC) Count 9.9 thou/uL (4.8-10.8)
== END 2021-03-12 13:47 | disposition short-term general hospital (02) ==
LOC: BURERS 15:25
DX: M00.822 Arthritis due to other bacteria, left elbow (principal); E11.9 Type 2 diabetes mellitus without complications; I11.0 Hypertensive heart disease with heart failure; I50.9 Heart failure, unspecified; Z20.822 Contact with and (suspected) exposure to COVID-19; Z79.52 Long term (current) use of systemic steroids; Z79.82 Long term (current) use of aspirin; Z79.4 Long term (current) use of insulin; Z79.899 Other long term (current) drug therapy
CPT/HCPCS: 36415; 36416; 80053; 82330; 82803; 83605; 85025; 86140; 87040; 87070; 87186; 87205; 90471; 90715; 93005; 96365; 96366; 96367; 96375; 96376; J0692; J1815; J1885; J2270; J3370; J3490; Q9967; U0002

== ENCOUNTER 2022-07-22 17:04 | Emergency (ER) | payer OTHER ==
[2022-07-22] MEDS ORDERED: Morphine 4 MG/ML VIAL ONE (17:25)
[2022-07-22] MEDS ORDERED: Aspirin Chewable 81 MG TAB ONE (17:26)
[2022-07-22] MEDS ORDERED: Ondansetron PF 4 MG/2 ML Vial ONE (17:26)
[2022-07-22 17:36] LABS: #Eosinphils 0.2 thou/uL (0.0-0.7); #Lymphocytes 2.2 thou/uL (1.20-3.40); #Monocytes 0.5 thou/uL (0.11-0.59); #Neutrophils 4.5 thou/uL (1.40-6.50); %Basophils 0.4 % (0.0-1.0); %Eosinophils 2.8 % (0.0-10.0); %Lymphocytes 29.9 % (21.0-51.0); Hemoglobin 11.8 g/dL (14.0-18.0); Mean Corpuscular HGB CONC 32.2 g/dL (32.0-36.0); Mean Corpuscular Hemoglobin 28.6 pg (27.0-31.0); Mean Corpuscular Volume 88.8 fl (78.0-98.0); Mean Platelet Volume 6.5 fL (7.4-10.4); Platelet Count 422 10x3/uL (130-400); RBC Distribution Width 13.1 % (11.5-14.5); Red Blood Cell (RBC) Count 4.12 mill/uL (4.70-6.10); White Blood Cell (WBC) Count 7.4 10x3/uL (4.8-10.8)
[2022-07-22 17:56] LABS: ALT (SGPT) Less than 7 U/L (8-55); AST (SGOT) 9 U/L (5-34); Albumin 3.3 g/dL (3.5-5.0); Alcohol Less than 10 mg/dL (Less than 10); Alkaline Phosphatase 116 U/L (40-110); Anion Gap 11 mmol/L (10-20); BUN (Urea Nitrogen) 6 mg/dL (8.4-25.7); Bilirubin, Total 0.2 mg/dL (0.2-1.2); Calc. Creatinine Clearance 0 mL/min (70-130); Calcium 8.6 mg/dL (7.8-10.44); Carbon Dioxide 26 mmol/L (22-29); Chloride 103 mmol/L (98-107); Estimated GFR 83; Globulin 4.8 g/dL (2.4-3.5); Glucose 142 mg/dL (70-105); Potassium 3.5 mmol/L (3.5-5.1); Protein, Total 8.1 g/dL (6.0-8.3); Sodium 136 mmol/L (136-145)
[2022-07-22] MEDS ORDERED: Lidocaine Viscous Sol 2% 15 ml UD Cup ONE (19:49)
[2022-07-22] MEDS ORDERED: Famotidine/PF 20 mg/2ml Vial ONE (19:49)
[2022-07-22] MEDS ORDERED: Mag-Al Plus 1200 MG/1200 MG/120 MG/30 ML UDCUP ONE (19:49)
[2022-07-23] MEDS ORDERED: Acetaminophen 500 MG TAB ONE (03:05)
== END 2022-07-23 09:06 | disposition home or self-care (01) ==
LOC: BURERS 17:04
DX: R07.9 Chest pain, unspecified (principal); I11.0 Hypertensive heart disease with heart failure; I50.9 Heart failure, unspecified; E11.9 Type 2 diabetes mellitus without complications; Z79.899 Other long term (current) drug therapy; Z79.85 Long-term (current) use of injectable non-insulin antidiabetic drugs; Z79.82 Long term (current) use of aspirin
CPT/HCPCS: 36415; 71045; 80053; 80307; 83880; 84484; 85025; 93005; 94760; 96374; 96375; J2270; J2405; S0028

== ENCOUNTER 2022-09-11 17:26 | Emergency (ER) | payer OTHER ==
[2022-09-11] MEDS ORDERED: Thiamine HCl 200 MG/2 ML VIAL ONE (18:21)
[2022-09-11] MEDS ORDERED: Folic Acid 1 MG TAB ONE (18:21)
[2022-09-11] MEDS ORDERED: Thiamine 100 MG TAB ONE (18:23)
[2022-09-11 18:29] LABS: #Eosinphils 0.3 thou/uL (0.0-0.7); #Lymphocytes 2.1 thou/uL (1.20-3.40); #Monocytes 0.5 thou/uL (0.11-0.59); #Neutrophils 4.6 thou/uL (1.40-6.50); %Basophils 0.5 % (0.0-1.0); %Eosinophils 4.2 % (0.0-10.0); %Lymphocytes 27.7 % (21.0-51.0); %Monocytes 6.6 % (0.0-10.0); Hemoglobin 10.2 g/dL (14.0-18.0); Mean Corpuscular Hemoglobin 28.7 pg (27.0-31.0); Mean Corpuscular Volume 86.9 fl (78.0-98.0); Mean Platelet Volume 5.9 fL (7.4-10.4); Platelet Count 380 10x3/uL (130-400); RBC Distribution Width 11.3 % (11.5-14.5); Red Blood Cell (RBC) Count 3.56 mill/uL (4.70-6.10); White Blood Cell (WBC) Count 7.5 10x3/uL (4.8-10.8)
[2022-09-11 18:45] LABS: ALT (SGPT) Less than 7 U/L (8-55); AST (SGOT) 7 U/L (5-34); Albumin 3.4 g/dL (3.5-5.0); Alkaline Phosphatase 108 U/L (40-110); Anion Gap 13 mmol/L (10-20); BUN (Urea Nitrogen) 8 mg/dL (8.4-25.7); Bilirubin, Total 0.3 mg/dL (0.2-1.2); Calc. Creatinine Clearance 0 mL/min (70-130); Calcium 8.5 mg/dL (7.8-10.44); Carbon Dioxide 26 mmol/L (22-29); Chloride 90 mmol/L (98-107); Estimated GFR 65; Globulin 4.5 g/dL (2.4-3.5); Glucose 179 mg/dL (70-105); Potassium 3.9 mmol/L (3.5-5.1); Protein, Total 7.9 g/dL (6.0-8.3); Sodium 125 mmol/L (136-145)
[2022-09-11 18:46] LABS: Acetaminophen Less than 10 mcg/mL (10.0-30.0); Alcohol Less than 10.0 mg/dL (Less than 10); Salicylate Less than 8.0 mg/dL (15.0-30.0)
[2022-09-11 19:06] LABS: CKMB 2.7 ng/mL (0-6.6)
[2022-09-11] MEDS ORDERED: diphenhydrAMINE 12.5 MG/5 ML UDCUP ONE (20:38)
[2022-09-11] MEDS ORDERED: diphenhydrAMINE 50 MG/ML VIAL ONE (20:39)
[2022-09-11 21:15] LABS: Troponin I 0.045 ng/mL (< 0.028)
[2022-09-11 21:56] LABS: Bilirubin Negative (Negative); Blood, Urine Small (Negative); Clarity Clear (Clear); Glucose, Urine (Dipstick) Negative (Negative); Ketone, Urine Negative (Negative); Leukocyte Large (Negative); Nitrite Negative (Negative); Protein, Urine (Dipstick) Negative (Neg-Trace); Urobilinogen 0.2 mg/dL (Less than 2); pH, Urine 6.5 (5.0-9.0)
[2022-09-11 22:21] LABS: Bacteria/HPF Rare-Few HPF (None Seen); CAUTI Indications for Culture Alt mental st,lethar; RBC/HPF 0-3 HPF (0-3); Specific Gravity, Urine Less/Equal 1.005 (1.005-1.030); Squamous Epithelial 0-3 HPF (0-3)
[2022-09-11 22:22] LABS: Cocaine Metabolite Screen Not Detected (NotDetected); Methamphetamine Not Detected (NotDetected); Opiate Screen Detected (NotDetected); Phencyclidine (PCP) Not Detected (NotDetected); THC/Cannabinoid Screen Not Detected (NotDetected)
[2022-09-11 22:23] LABS: Amphetamine Not Detected (NotDetected); Barbiturates Screen Not Detected (NotDetected); Benzodiazepine Screen Not Detected (NotDetected); Methadone Not Detected (NotDetected); Oxycodone Screen Not Detected (NotDetected); Tricyclic Screen Not Detected (NotDetected); Urine Culture Reflex No No
== END 2022-09-11 22:35 | disposition short-term general hospital (02) ==
LOC: BURERS 17:26
DX: E87.1 Hypo-osmolality and hyponatremia (principal); I11.0 Hypertensive heart disease with heart failure; I50.9 Heart failure, unspecified; E11.9 Type 2 diabetes mellitus without complications; J42 Unspecified chronic bronchitis; I42.9 Cardiomyopathy, unspecified; Z79.82 Long term (current) use of aspirin; Z79.4 Long term (current) use of insulin; Z79.899 Other long term (current) drug therapy
CPT/HCPCS: 36415; 70450; 71045; 80053; 80306; 80307; 81001; 82553; 83880; 84484; 85025; 93005; 96374; J1200; J3411; Q0163

== ENCOUNTER 2022-10-15 15:51 | Emergency (ER) | payer OTHER ==
[2022-10-15] MEDS ORDERED: Insulin Regular 300 UNITS/3 ML VIAL ONE (16:08)
[2022-10-15] MEDS ORDERED: Nitroglycerin 0.4 MG TAB 1 EACH ONE (16:08)
[2022-10-15 16:32] LABS: #Eosinphils 0.3 thou/uL (0.0-0.7); #Lymphocytes 1.3 thou/uL (1.20-3.40); #Monocytes 0.1 thou/uL (0.11-0.59); #Neutrophils 4.9 thou/uL (1.40-6.50); %Basophils 0.4 % (0.0-1.0); %Eosinophils 4.4 % (0.0-10.0); %Lymphocytes 19.6 % (21.0-51.0); %Monocytes 1.7 % (0.0-10.0); Hematocrit 26.5 % (42.0-52.0); Hemoglobin 8.8 g/dL (14.0-18.0); Mean Corpuscular HGB CONC 33.3 g/dL (32.0-36.0); Mean Corpuscular Hemoglobin 28.8 pg (27.0-31.0); Mean Corpuscular Volume 86.4 fl (78.0-98.0); Mean Platelet Volume 7.1 fL (7.4-10.4); Platelet Count 232 10x3/uL (130-400); RBC Distribution Width 11.8 % (11.5-14.5); Red Blood Cell (RBC) Count 3.06 mill/uL (4.70-6.10); White Blood Cell (WBC) Count 6.6 10x3/uL (4.8-10.8)
[2022-10-15 16:38] LABS: ALT (SGPT) Less than 7 U/L (8-55); AST (SGOT) 4 U/L (5-34); Albumin 2.9 g/dL (3.5-5.0); Alcohol Less than 10.0 mg/dL (Less than 10); Alkaline Phosphatase 106 U/L (40-110); Anion Gap 11 mmol/L (10-20); BUN (Urea Nitrogen) 11 mg/dL (8.4-25.7); Bilirubin, Total 0.2 mg/dL (0.2-1.2); Calc. Creatinine Clearance 0 mL/min (70-130); Calcium 8.1 mg/dL (7.8-10.44); Carbon Dioxide 23 mmol/L (22-29); Chloride 94 mmol/L (98-107); Estimated GFR 56; Potassium 4.2 mmol/L (3.5-5.1); Protein, Total 6.9 g/dL (6.0-8.3); Sodium 124 mmol/L (136-145)
[2022-10-15 16:39] LABS: Troponin I 0.033 ng/mL (< 0.028)
[2022-10-15 16:39] LABS: Bilirubin Negative (Negative); Blood, Urine Moderate (Negative); Clarity Cloudy (Clear); Glucose, Urine (Dipstick) 500 mg/dL (Negative); Ketone, Urine Negative (Negative); Leukocyte Trace (Negative); Nitrite Negative (Negative); Protein, Urine (Dipstick) Trace mg/dL (Neg-Trace); Urobilinogen 0.2 mg/dL (Less than 2); pH, Urine 6.5 (5.0-9.0)
[2022-10-15 16:44] LABS: Bacteria/HPF 1+ HPF (None Seen); CAUTI Indications for Culture Dysuria,urgency,freq; Squamous Epithelial 0-3 HPF (0-3); WBC/HPF Greater Than 50 HPF (0-3)
[2022-10-15 16:45] LABS: Urine Culture Reflex Yes Yes
[2022-10-15 16:48] LABS: Glucose 570 mg/dL (70-105)
[2022-10-15] MEDS ORDERED: cefTRIAXone (ROCEPHIN) 1 GM VIAL ONE (16:49)
[2022-10-15] MEDS ORDERED: Sodium Chloride 0.9% 100 ML ONE (16:49)
[2022-10-15 16:53] LABS: Amphetamine Not Detected (NotDetected); Barbiturates Screen Not Detected (NotDetected); Benzodiazepine Screen Not Detected (NotDetected); Cocaine Metabolite Screen Detected (NotDetected); Methadone Not Detected (NotDetected); Methamphetamine Not Detected (NotDetected); Opiate Screen Detected (NotDetected); Oxycodone Screen Not Detected (NotDetected); Phencyclidine (PCP) Not Detected (NotDetected); THC/Cannabinoid Screen Not Detected (NotDetected); Tricyclic Screen Not Detected (NotDetected)
[2022-10-15] MEDS ORDERED: Ibuprofen 800 MG TAB ONE (17:14)
[2022-10-15] MEDS ORDERED: HYDROcodone/Acetaminophen 5/325 mg Tablet ONE (21:01)
== END 2022-10-15 22:30 | disposition short-term general hospital (02) ==
LOC: BURERS 15:51
DX: R07.89 Other chest pain (principal); D64.9 Anemia, unspecified; E11.65 Type 2 diabetes mellitus with hyperglycemia; N39.0 Urinary tract infection, site not specified; I11.0 Hypertensive heart disease with heart failure; I50.9 Heart failure, unspecified; Z79.899 Other long term (current) drug therapy; Z79.82 Long term (current) use of aspirin; Z79.4 Long term (current) use of insulin
CPT/HCPCS: 36415; 36416; 71045; 80053; 80306; 80307; 81001; 83880; 84484; 85025; 87086; 93005; 94760; 96361; 96365; 96375; 96376; J0696; J1815; J3490